=== PATIENT | female | born 1970 | race Two or more races ===

== ENCOUNTER 2020-09-19 13:10 | Emergency (ER) | payer SELFPAY ==
[~2020-09-19] VITALS: Ht 157.5 cm; Wt 78.0 kg
--- NOTE | 2020-09-19 13:42 | NUR ---
pt presents to ED sent from urgent care. pt was seen at urgent care to obtain synthroid rx as she does not currently have a pcp in town, ran out of synthroid 2 months ago. pt denies cp, denies headache, denies visual changes, denies sob. neuro intact. pt a&o, resps even and unlabored. all monitors in place, sinus tach on school lunch monitor with no ectopy, rate 100s. awaiting provider and dispo.
[2020-09-19] MEDS ORDERED: MULT-658 PO (13:46)
[2020-09-19] MEDS ORDERED: calcium PO (13:46)
[2020-09-19] MEDS ORDERED: LEVO125T PO (13:46)
[2020-09-19] MEDS ORDERED: magnesium PO (13:46)
[2020-09-19 14:30] VITALS: BP 166/114
--- NOTE | 2020-09-19 14:49 | NUR ---
bp recheck of 166/114 reviewed by wade delatorre md declines to order rx for bp as pt declines when offered. pt requesting to follow up with pcp for management. pt is a&o, repss even and unlabored. pt asymtomatic. pt given dc instructions and script for levothroxine. pt ambulatory to dc desk with steady gait, all questions answered.
== END 2020-09-19 14:52 | disposition home or self-care (01) ==
LOC: ED 14:15
DX: I10 Essential (primary) hypertension (principal); E03.9 Hypothyroidism, unspecified; Z76.0 Encounter for issue of repeat prescription
CPT/HCPCS: 99281

== ENCOUNTER 2020-10-26 18:26 | Emergency (ER) | payer SELFPAY ==
[~2020-10-26] VITALS: Ht 157.5 cm; Wt 75.0 kg
[~2020-10-26 18:26] MED LIST: LEVO125T PO; MULT-658 PO; calcium PO; magnesium PO
--- NOTE | 2020-10-26 19:20 | NUR ---
PT C/O N/V. PT HAS BEEN SEEN BY DR TOMPKINS. VS STABLE. NO ACUTE DISTRESS NOTED. CALL LIGHT IN PLACE. WILL CONTINUE TO MONITOR.
--- NOTE | 2020-10-26 19:26 | NUR ---
PT TALKING ON CELL PHONE IN ROOM. VS STABLE. NO ACUTE DISTRESS NOTED. CALL LIGHT IN PLACE. WILL CONTINUE TO MONITOR.
[2020-10-26 19:36] LABS: BASOPHILS % (AUTO) 1 % (0-1); EOSINOPHILS % (AUTO) 1 % (1-7); LYMPHOCYTES % (AUTO) 29 % (22-44); MEAN CORPUSCULAR HEMOGLOBIN 33.8 pg (27.0-34.8); MEAN CORPUSCULAR HGB CONC 35.2 g/dL (32.4-35.8); MEAN PLATELET VOLUME 7.4 fL (7.4-10.4); MONOCYTES % (AUTO) 9 % (2-9); NEUTROPHILS % (AUTO) 61 % (42-75); PLATELET COUNT 316 x10^3/uL (130-400); RED BLOOD COUNT 5.03 x10^6/uL (3.82-5.3); RED CELL DISTRIBUTION WIDTH 14.9 % (9.6-15.2)
[2020-10-26 19:37] LABS: MD NO
[2020-10-26 19:39] LABS: ALANINE AMINOTRANSFERASE 84 U/L (12-78); ALBUMIN 3.5 g/dL (3.4-5.0); ANION GAP 13 mmol/L (5-15); CALCIUM 8.7 mg/dL (8.5-10.1); CHLORIDE 100 mmol/L (98-107); CREATININE 0.89 mg/dL (0.55-1.02)
[2020-10-26 19:49] LABS: ALKALINE PHOSPHATASE 119 U/L (45-117); BILIRUBIN,TOTAL 0.6 mg/dL (0.2-1.0); TOTAL PROTEIN 7.2 g/dL (6.4-8.2)
[2020-10-26] MEDS ORDERED: ONDANSETRON 2MG/ML, 2ML ONE (19:57)
[2020-10-26] MEDS ORDERED: POTASSIUM CHLORIDE 20 MEQ TAB.ER.PRT ONE (19:57)
[2020-10-26] MEDS ORDERED: ONDANSETRON 2MG/ML, 2ML IVPush ONE (20:00)
[2020-10-26] MEDS ORDERED: SODIUM CHLORIDE 0.9% 1,000ML IVBOLUS ONE (20:00)
[2020-10-26] MEDS ORDERED: POTASSIUM CHLORIDE 20 MEQ TAB.ER.PRT PO ONE (20:00)
[2020-10-26 20:03] LABS: FREE T4 (FREE THYROXINE) 0.73 ng/dL (0.76-1.46)
--- NOTE | 2020-10-26 20:10 | NUR ---
TASK RN: MEDICATED PER EMAR
[2020-10-26] MEDS ORDERED: PROMETHAZINE 25 MG/ML, 1ML ONE (20:44)
--- NOTE | 2020-10-26 20:49 | NUR ---
task rn: medicated per emar for continued nausea
[2020-10-26] MEDS ORDERED: PROMETHAZINE 25 MG/ML, 1ML IM ONE (21:00)
--- NOTE | 2020-10-26 21:43 | NUR ---
PT RESTING IN ROOM. VS STABLE. CALL LIGHT IN PLACE. WILL CONTINUE TO MONITOR.
--- NOTE | 2020-10-26 22:02 | NUR ---
PT GIVEN PO FLUIDS PER DR TOMPKINS.
--- NOTE | 2020-10-26 22:36 | NUR ---
DR TOMPKINS IN ROOM UPDATING PATIENT
[2020-10-26 23:05] VITALS: BP 137/85
== END 2020-10-26 23:18 | disposition home or self-care (01) ==
LOC: ED 18:49
DX: R11.2 Nausea with vomiting, unspecified (principal); E87.6 Hypokalemia; E03.9 Hypothyroidism, unspecified; R00.2 Palpitations; I10 Essential (primary) hypertension
CPT/HCPCS: 36415; 80053; 83690; 84439; 84443; 85025; 96361; 96372; 96374; 99285; J2405; J2550; J7030